=== PATIENT | male | born 1980 | race African-American/Black ===

== ENCOUNTER 2021-04-03 01:45 | Emergency (ER) | payer MEDICAID, OTHER ==
[~2021-04-03] VITALS: Ht 195.6 cm; Wt 108.0 kg
[2021-04-03 03:56] LABS: Urine Bacteria NONE SEEN /hpf (None Seen); Urine Blood Negative /uL (Negative); Urine Hyaline Cast MOD /lpf (0 - 2); Urine Mucus FEW (None Seen); Urine Specific Gravity 1.026 (1.001-1.035); Urine Sperm PRESENT /hpf (None Seen); Urine WBC 26 /hpf (0 - 3)
[2021-04-03] MEDS ORDERED: cefTRIAXone SOD 1,000 MG VL IM ONE (07:15)
[2021-04-03] MEDS ORDERED: cloNIDine HCL 0.1 MG TAB PO ONE (07:15)
[2021-04-03 08:40] VITALS: BP 148/100
== END 2021-04-03 08:50 | disposition home or self-care (01) ==
LOC: ER 01:47
DX: N39.0 Urinary tract infection, site not specified (principal); G89.29 Other chronic pain; M25.562 Pain in left knee; M25.561 Pain in right knee; F17.210 Nicotine dependence, cigarettes, uncomplicated; I10 Essential (primary) hypertension
CPT/HCPCS: 81001; 96372; 99283; J0696